=== PATIENT | male | born 1945 ===

== ENCOUNTER 2023-03-15 00:35 | Emergency (ER) | payer SELFPAY ==
[2023-03-15 00:49] VITALS: BP 126/67; PULSE 82; RESP 17; TEMP 98.1; BMI 29.0
[2023-03-15] MEDS ORDERED: DIPHTH,PERTUSS(ACELL),TET 0.5 ML DISP.SYRIN IM ONE ×2 (01:27→01:45)
[2023-03-15] MEDS ORDERED: BACITRACIN 0.9 GM PACKET ONE (02:03)
[2023-03-15 03:00] LABS: BASO % 0.7 % (0-2.0); EOS % 1.2 % (0-4.5); HEMATOCRIT 39.5 % (35.4-49); HEMOGLOBIN 13.3 GM/dL (11.7-16.9); LYMPH % 22.3 % (8-40); MCH 28.1 pg (25.7-33.7); MCHC 33.6 g/dl (32.0-35.9); MEAN CELL VOLUME 83.7 fl (80-96); MEAN PLT VOLUME 8.8 fl (7.5-11.1); MONO % 3.9 % (3.8-10.2); NEUT % 71.9 % (42.8-82.8); PLATELET COUNT 214 10^3/uL (134-434); RBC 4.72 M/mm3 (4.00-5.60); RDW 13.7 % (11.9-15.9); WHITE BLOOD COUNT 9.5 K/mm3 (4.0-10.0)
[2023-03-15 03:19] LABS: ACTIVATED PTT 34.2 SECONDS (25.2-36.5); INR 1.03 (0.83-1.09); POTASSIUM 4.1 mmol/L (3.5-5.1)
[2023-03-15 03:22] LABS: ALBUMIN 3.5 g/dl (3.4-5.0); BLOOD UREA NITROGEN 12.2 mg/dL (7-18); CALCIUM 8.4 mg/dL (8.5-10.1); MAGNESIUM 2.2 mg/dL (1.8-2.4)
[2023-03-15 03:25] LABS: CREATININE 0.8 mg/dL (0.55-1.3)
[2023-03-15 03:26] LABS: BILIRUBIN,TOTAL 0.2 mg/dL (0.2-1); TOT PROT 7.4 g/dl (6.4-8.2)
== END 2023-03-15 05:51 | disposition home or self-care (01) ==
LOC: JER 00:35
PROC: 3E0234Z Introduction of Serum, Toxoid and Vaccine into Muscle, Percutaneous Approach (ICD-10-PCS; principal; 2023-03-15)
DX: F10.920 Alcohol use, unspecified with intoxication, uncomplicated (principal); I48.91 Unspecified atrial fibrillation; S00.81XA Abrasion of other part of head, initial encounter; W19.XXXA Unspecified fall, initial encounter; Y90.6 Blood alcohol level of 120-199 mg/100 ml; Z20.822 Contact with and (suspected) exposure to COVID-19
CPT/HCPCS: 0241U-QW; 36415; 70450-TC; 71046-TC-FY; 72125-TC; 72170-TC-FY; 80053; 80307; 82962; 83735; 84484; 85025; 85610; 85730; 86850; 86900; 86901; 90715; 93005; 93010; 99285-25